=== PATIENT | male | born 1970 | race Two or more races ===

== ENCOUNTER 2017-05-02 15:15 | Emergency (ER) | payer SELFPAY ==
[2017-05-02 15:34] VITALS: BP 128/84; PULSE 84; RESP 18; TEMP 98.1; O2SAT 97
--- NOTE | 2017-05-02 17:13 | C.PDOC ---
History Of Present Illness 46 y/o male presents to the ED with complaints of left foot pain x4 months. Pt reports persistent pain since foot surgery at that time. Did not follow up with [facility]. Pt took 2 Tylenol this morning with mild relief. Denies weakness, numbness, fever or any other complaints. Chief Complaint (Nursing): Lower Extremity Problem/Injury History Per: Patient History/Exam Limitations: no limitations Onset/Duration Of Symptoms: Days Current Symptoms Are (Timing): Still Present Severity: Moderate Recent travel outside of the [place]: No Past Medical History Reviewed: Historical Data, Nursing Documentation, Vital Signs Vital Signs: Last Vital Signs Temp 98.1 F 05/02/17 15:32 Pulse 84 05/02/17 15:32 Resp 18 05/02/17 15:32 BP 128/84 05/02/17 15:32 Pulse Ox 97 05/02/17 17:17 Family History: States: Unknown Family Hx - Social History Hx Alcohol Use: No Hx Substance Use: No - Immunization History Hx Tetanus Toxoid Vaccination: No Hx Influenza Vaccination: No Hx Pneumococcal Vaccination: No Review Of Systems Except As Marked, All Systems Reviewed And Found Negative. Constitutional: Negative for: Fever, Chills Musculoskeletal: Positive for: Foot Pain (left) Neurological: Negative for: Weakness, Numbness Physical Exam - Physical Exam Appears: Non-toxic, No Acute Distress Skin: Warm, Dry, No Rash Head: Atraumatic, Normacephalic Extremity: Normal ROM, Tenderness (diffuse left foot), Capillary Refill (<2 seconds), No Deformity, Other (well healed surgical scar to dorsal aspect left foot between 3rd and 4th digits; no redness or warmth) Pulses: Left Dorsalis Pedis: Normal Neurological/Psych: Oriented x3, Normal Speech, Normal Motor, Normal Sensation ED Course And Treatment O2 Sat by Pulse Oximetry: 97 (room air) Pulse Ox Interpretation: Normal Disposition - Disposition Referrals: [facility], [Non-Staff] - Disposition: HOME/ ROUTINE Disposition Time: 15:40 Condition: GOOD Additional Instructions: Thank you for letting us take care of you today. Your provider was Dr. Rios. You were treated for chronic foot pain. The emergency medical care you received today was directed at your acute symptoms. If you were prescribed any medication, please fill it and take as directed. It may take several days for your symptoms to resolve. Return to the Emergency Department if your symptoms worsen, do not improve, or if you have any other problems. Please contact your doctor or call one of the physicians/clinics you have been referred to that are listed on the Patient Visit Information form that is included in your discharge packet. Bring any paperwork you were given at discharge with you along with any medications you are taking to your follow up visit. Our treatment cannot replace ongoing medical care by a primary care provider (PCP) outside of the emergency department. Thank you for allowing the [facility] team to be part of your care today. Follow up with your doctor in 3-4 days for re-evaluation. Prescriptions: Cyclobenzaprine [Cyclobenzaprine HCl] 10 mg PO Q8 PRN #20 tab PRN Reason: Muscle Spasm Ibuprofen [Motrin] 600 mg PO Q6 PRN #20 tab PRN Reason: Pain, Moderate (4-7) Instructions: Arthralgia (ED) Forms: Gen Discharge Inst Czech Print Language: SWEDISH - Clinical Impression Clinical Impression: Chronic foot pain - Scribe Statement The provider has reviewed the documentation as recorded by the Aj Sandhu Provider Attestation: All medical record entries made by the Aj were at my direction and personally dictated by me. I have reviewed the chart and agree that the record accurately reflects my personal performance of the history, physical exam, medical decision making, and the department course for this patient. I have also personally directed, reviewed, and agree with the discharge instructions and disposition.
== END 2017-05-02 16:10 | disposition home or self-care (01) ==
LOC: C.ER 15:15
DX: G89.29 Other chronic pain (principal); M79.672 Pain in left foot